=== PATIENT | male | born 1985 | race African-American/Black ===

== ENCOUNTER 2021-01-16 08:46 | Emergency (ER) | payer OTHER ==
[~2021-01-16] VITALS: Ht 172.7 cm; Wt 81.7 kg
[~2021-01-16 08:46] MED LIST: DOXYCYCLINE 10100 MG PO; NORCO 5-325 TA1 EACH PO
[2021-01-16 09:10] VITALS: BP 120/80
[2021-01-16] MEDS ORDERED: TIZANIDINE HCL4 M2 PO (09:20)
== END 2021-01-16 10:12 | disposition home or self-care (01) ==
LOC: ER 08:46
DX: Z20.822 Contact with and (suspected) exposure to COVID-19 (principal); F17.210 Nicotine dependence, cigarettes, uncomplicated; Z79.899 Other long term (current) drug therapy; Z88.5 Allergy status to narcotic agent; Z98.890 Other specified postprocedural states